=== PATIENT | male | born 1980 | race Caucasian/White ===

== ENCOUNTER 2018-03-20 18:06 | Emergency (ER) | payer SELFPAY ==
[~2018-03-20] VITALS: Ht 188 cm; Wt 103.4 kg
[2018-03-20] MEDS: MORPHINE SULFATE INJECTION 1 ML ONE (19:46)
[2018-03-20] MEDS: LIDOCAINE 1% (LOCAL ANESTH.) PF 5ml SDV IJ ONE (19:46)
[2018-03-20] MEDS: TETANUS-DIPTH-ACEL PERTUSSIS 0.5ML SYRG IM ONE (19:46)
[2018-03-20] MEDS: MORPHINE SULFATE 8mg/ml INJ SDV IV ONE (19:47)
[2018-03-20] MEDS: ONDANSETRON HCL 4 MG/2 ML VIAL IV ONE (19:47)
[2018-03-20] MEDS: cefTRIAXone 1GM/10ml IVPUSH 10 ML IV ONE (19:47)
[2018-03-20] MEDS: NEOMYCIN-BACITRACIN-POLYM UNITDOSE PKG TOP OINT TOP ONE (19:48)
[2018-03-20] MEDS: LIDOCAINE 2% (LOCAL ANESTH.) PF 5ml SDV ONE ×3 (19:48→22:45)
[2018-03-20] MEDS: LIDOCAINE 2% (LOCAL ANESTH.) PF 5ml SDV IJ ONE (19:50)
[2018-03-20] MEDS: LIDOCAINE 1% HCL (LOCAL ANESTH.) INJ 20ML MDV ONE (22:45)
[2018-03-20 22:46] VITALS: BP 135/82
== END 2018-03-20 22:50 | disposition home or self-care (01) ==
LOC: ER 18:06
DX: S51.812A Laceration without foreign body of left forearm, initial encounter (principal); W19.XXXA Unspecified fall, initial encounter; Y93.89 Activity, other specified; Y99.8 Other external cause status; Y92.89 Other specified places as the place of occurrence of the external cause
CPT/HCPCS: 12044; 73090; 90471; 90715; 96374; 96375; 99284; J2001; J2270; J2405